=== PATIENT | male | born 1985 | race African-American/Black ===

== ENCOUNTER 2024-12-08 06:22 | Emergency (ER) | payer SELFPAY ==
[2024-12-08] MEDS ORDERED: Ketorolac Tromethamine 30 MG (1 mL) VIAL ONE (06:30)
== END 2024-12-08 08:25 | disposition home or self-care (01) ==
LOC: ERS 06:22
DX: M25.551 Pain in right hip (principal); R29.700 NIHSS score 0; F17.210 Nicotine dependence, cigarettes, uncomplicated
CPT/HCPCS: 72170; 96372; 99283; J1885